=== PATIENT | female | born 1970 | race Caucasian/White ===

== ENCOUNTER → 2020-11-30 16:42 | Outpatient (CLI) | payer MEDICAID ==
[2020-11-30 17:09] LABS: BASOPHILS 0.6 % (0-2); EOSINOPHILS 15.6 % (0-7); HEMATOCRIT 38.4 % (36.0-48.0); HEMOGLOBIN 13.1 g/dL (12-16); IMMATURE GRANULOCYTES 0.1 % (0-5); LYMPHOCYTE ABS# 3.11 10x3/uL (1.18-3.74); LYMPHOCYTES 34.6 % (15-50); MCH 31.7 pg (26.0-34.0); MCHC 34.1 g/dL (31.0-37.0); MEAN PLATELET VOLUME 10.3 fL (7.4-10.4); NEUTROPHIL ABS# 4.06 10x3/uL (1.56-6.13); NEUTROPHILS 45.1 % (40-80); PLATELET COUNT 177 10x3/uL (130-400); RBC 4.13 10x6/uL (4.00-5.40); RDW 13.6 % (11.5-14.5)
[2020-11-30 17:31] LABS: ALBUMIN 3.9 g/dL (3.4-5.0); ANION GAP 16.2 mmol/L (8-16); BILIRUBIN - TOTAL 0.11 mg/dL (0.2-1.3); CALCIUM 9.5 mg/dL (8.5-10.1); CARBON DIOXIDE 22.4 mmol/L (21.0-32.0); POTASSIUM - SERUM 3.6 mmol/L (3.5-5.1); PROTEIN - SERUM 7.2 g/dL (6.4-8.2)
== END | disposition home or self-care (01) ==
LOC: D.LAB 16:42
PROVIDERS: ATTEND Psychiatry & Neurology Neurology
DX: G60.9 Hereditary and idiopathic neuropathy, unspecified (principal)

== ENCOUNTER 2021-01-09 14:57 | Emergency (ER) | payer MEDICAID ==
[~2021-01-09] VITALS: Ht 152.4 cm; Wt 72.7 kg
[2021-01-09 15:06] VITALS: Ht 152.4 cm; Wt 72.7 kg
[2021-01-09] MEDS ORDERED: SEIZURE MED (15:07)
[2021-01-09] MEDS ORDERED: NEURONTIN 400400 MG (15:07)
[2021-01-09] MEDS ORDERED: LISINOPRIL5 MG PO (15:07)
[2021-01-09 15:43] LABS: BASOPHILS 0.6 % (0-2); EOSINOPHILS 5.1 % (0-7); HEMATOCRIT 40.6 % (36.0-48.0); IMMATURE GRANULOCYTES 0.4 % (0-5); LYMPHOCYTE ABS# 2.52 10x3/uL (1.18-3.74); LYMPHOCYTES 49.1 % (15-50); MCH 31.3 pg (26.0-34.0); MCHC 34.5 g/dL (31.0-37.0); MCV 90.8 fL (80.0-100.0); MEAN PLATELET VOLUME 10.8 fL (7.4-10.4); MONOCYTES 6.2 % (2-11); NEUTROPHIL ABS# 1.98 10x3/uL (1.56-6.13); NEUTROPHILS 38.6 % (40-80); RBC 4.47 10x6/uL (4.00-5.40); RDW 13.9 % (11.5-14.5); WBC 5.1 10x3/uL (4.8-10.8)
[2021-01-09 15:45] LABS: PLATELET COUNT 123 10x3/uL (130-400)
[2021-01-09 15:53] LABS: APTT 26.5 SECONDS (22.8-39.4); INR 1.04 (0.85-1.17); PROTIME 12.6 SECONDS (11.6-15.0)
[2021-01-09 15:54] VITALS: BP 139/85
[2021-01-09 16:10] LABS: SARS-CoV-2 ANTIGEN POSITIVE- SARS-COV-2 (NEGATIVE)
[2021-01-09 16:22] LABS: CALC OSMOLALITY 277 mosm/kg (275-300); CALCIUM 9.6 mg/dL (8.5-10.1); CARBON DIOXIDE 21.3 mmol/L (21.0-32.0); CHLORIDE - SERUM 104 mmol/L (98-107); CREATININE - SERUM 0.9 mg/dL (0.6-1.3); GLUCOSE 104 mg/dL (74-106); POTASSIUM - SERUM 4.2 mmol/L (3.5-5.1); SODIUM 140 mmol/L (136-145); UREA NITROGEN 9 mg/dL (7-18); eGFR NON AFRICAN AMERICAN 70 mL/min (90-120)
[2021-01-09] MEDS ORDERED: MUCINEX DM ER1 EAC1 PO (16:26)
[2021-01-09] MEDS ORDERED: VITAMIN D 22000 UNIT PO (16:26)
[2021-01-09] MEDS ORDERED: C-500500 M1 PO (16:26)
[2021-01-09] MEDS ORDERED: ZINC SULFATE220 MG PO (16:26)
[2021-01-09] MEDS ORDERED: SYMBICORT 16010.2 GM INH (16:26)
[2021-01-09] MEDS ORDERED: DECADRON4 MG PO (16:26)
[2021-01-09] MEDS ORDERED: TESSALON PERLE100 MG PO (16:26)
[2021-01-09] MEDS ORDERED: ZPAK PO (16:31)
[2021-01-09 16:39] LABS: ALBUMIN 4.3 g/dL (3.4-5.0); ALKALINE PHOSPHATASE 178 U/L (30-120); ALT (SGPT) 31 U/L (10-68); BILIRUBIN - TOTAL 0.51 mg/dL (0.2-1.3); CKMB 0.7 U/L (0.0-3.6); CREATINE KINASE 79 UL (21-215); PRO BNP 25 pg/mL (0-125); PROTEIN - SERUM 8.3 g/dL (6.4-8.2)
[2021-01-09 16:41] LABS: TROPONIN-I < 0.017 ng/mL (0.000-0.060)
== END 2021-01-09 17:09 | disposition home or self-care (01) ==
LOC: D.ER 14:57
PROVIDERS: Family Medicine
DX: U07.1 COVID-19 (principal); R51.9 Headache, unspecified; R50.9 Fever, unspecified; I50.9 Heart failure, unspecified